=== PATIENT | male | born 1970 | race Caucasian/White ===

== ENCOUNTER 2019-08-10 07:58 | Emergency (ER) | payer OTHER ==
[~2019-08-10] VITALS: Ht 172.7 cm; Wt 68.0 kg
[2019-08-10] MEDS ORDERED: JANUMET 50-1,01 EACH PO (08:31)
[2019-08-10] MEDS ORDERED: DIOVAN HCT 1601 EACH PO (08:31)
[2019-08-10] MEDS ORDERED: PEPCID AC20 MG PO (14:26)
[2019-08-10] MEDS ORDERED: METOCLOPRAMIDE10 MG PO (14:26)
[2019-08-10] MEDS ORDERED: INTESTINEX680 M1 PO (14:26)
== END 2019-08-10 14:33 | disposition home or self-care (01) ==
LOC: ER 07:58
DX: R07.89 Other chest pain (principal); K30 Functional dyspepsia